=== PATIENT | male | born 1955 | race Caucasian/White ===

== ENCOUNTER 2019-06-20 19:41 | Emergency (ER) | payer OTHER ==
--- OUTSIDE RECORDS SUMMARY | 2019-06-20 19:43 | XMS REPORT ---
:[address] [facility] t Address [address] [place] [address] Dr. Srinivasan [address] [place] [address] Care Team Providers Name Role Phone Unavailable Unavailable Unavailable Problems This patient has no known problems. Allergies, Adverse Reactions, Alerts This patient has no known allergies or adverse reactions. Medications This patient has no known medications.
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
[2019-06-20] MEDS ORDERED: MORPHINE 2 MG/ML SYR ONE ×2 (19:56→21:06)
[2019-06-20] MEDS ORDERED: TETANUS & DIPHTHERIA TOX,ADULT 0.5 ML VIAL ONE (20:05)
[2019-06-20] MEDS ORDERED: LIDOCAINE 1% W/EPI 1:100,000 MDV 50 ML VIAL ONE (20:05)
[2019-06-20] MEDS ORDERED: NA CHLORIDE 0.9% 500 ML ONE (20:05)
[2019-06-20] MEDS ORDERED: CEFAZOLIN/SWI 1gm 1 GM/10 ML SYR ONE (20:06)
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
[2019-06-20 21:45] LABS: Absolute Lymphocytes (CBC) 1.8 K/uL (0.7-4.9); Basophils % 0.1 % (0-1.3); Hematocrit 40.1 % (39.6-49.0); Lymphocytes % 9.5 % (15.3-44.8); MPV 8.7 fL (7.6-11.3); RBC Red Blood Cell Count 4.43 M/uL (4.33-5.43)
[2019-06-20 21:55] LABS: Potassium 3.7 mmol/L (3.5-5.1)
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
[2019-06-20] MEDS ORDERED: MORPHINE 4 MG/ML SYR ONE (22:38)
[2019-06-20 22:51] VITALS: TEMP 97.7
[2019-06-20 22:54] VITALS: BP 122/76; O2SAT 98
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
== END 2019-06-20 22:40 | disposition short-term general hospital (02) ==
LOC: ER 19:41
PROC: 2W39X1Z Immobilization of Left Upper Extremity using Splint (ICD-10-PCS; principal; 2019-06-20)
DX: S42.402B Unspecified fracture of lower end of left humerus, initial encounter for open fracture (principal); S02.85XA Fracture of orbit, unspecified, initial encounter for closed fracture; S06.0X9A Concussion with loss of consciousness of unspecified duration, initial encounter; Z23 Encounter for immunization; Z79.82 Long term (current) use of aspirin; Z88.0 Allergy status to penicillin; I10 Essential (primary) hypertension; E11.9 Type 2 diabetes mellitus without complications; V27.4XXA Motorcycle driver injured in collision with fixed or stationary object in traffic accident, initial encounter
CPT/HCPCS: 85025; 80048; 86900; 86850; 86901; 70450; 72125; 70486; 76377; 71045; 73070; 73090; 73060; 90714; 29105; J2270 ×2; J0690; J7040

== ENCOUNTER 2022-04-07 10:59 | Day surgery (SDC) | payer BC, OTHER ==
[2022-03-24 14:07] LABS: Hematocrit 41.5 % (39.6-49.0); Lymphocytes % 29.1 % (15.3-44.8); MCV 88.8 fL (80-100); MPV 8.8 fL (7.6-11.3); RBC Red Blood Cell Count 4.68 M/uL (4.33-5.43)
[2022-03-24 14:18] LABS: Potassium 4.1 mmol/L (3.5-5.1)
--- NOTE | 2022-03-26 18:11 | EKG ---
Test Date: 2022-03-24 Test Time: 13:41:39 Concession Attendant: WALLACE MEASUREMENT RESULTS: Intervals: Rate: 71 KY: 172 QRSD: 92 QT: 424 QTc: 460 Maury: P: 70 KY: 172 QRS: 40 T: 58 INTERPRETIVE STATEMENTS: Normal sinus rhythm Normal ECG Compared to ECG 09/08/2007 15:14:18 No significant changes Electronically Signed On 03-26-22 18:10:44 MANAGER [employer]UST[employer]S by Luisito Jose
[2022-03-27 21:00] LABS: PSA FREE 0.01 ng/mL
[2022-04-07] MEDS ORDERED: Ringers Lactate 1,000 ML IV ONE (11:42)
[2022-04-07] MEDS: Gentamicin Inj 180 MG in NA CHLORIDE 0.9% 100 ML IV SCH ×2 (15:38→16:00)
[2022-04-07] MEDS ORDERED: LIDOCAINE 1% MPF 5 ML VIAL ONE (15:42)
[2022-04-07] MEDS ORDERED: propofoL 200 MG/20 ML VIAL IV ONE (15:42)
[2022-04-07] MEDS: CLINDAMYCIN 600MG/D5W 50 ML IV SCH ×2 (15:56→16:00)
[2022-04-07] MEDS ORDERED: FENTANYL CITR 100 MCG/2 ML ONE (16:11)
[2022-04-07] MEDS ORDERED: dexAMETHasone 10 MG/ML VIAL ONE (16:11)
[2022-04-07] MEDS ORDERED: ONDANSETRON 4 MG/2 ML VIAL ONE (16:11)
[2022-04-07] MEDS ORDERED: GLYCOPYRROLATE 0.2 MG/ML SYR ONE ×2 (16:23→16:27)
[2022-04-07] MEDS ORDERED: Phenylephrine HCl 10 MG/ML 1 ML VIAL ONE (16:24)
[2022-04-07 16:47] VITALS: O2SAT 100
[2022-04-07] MEDS ORDERED: PHENAZOPYRIDINE 100MG TAB PO ONE ×2 (16:54→18:20)
[2022-04-07 18:30] VITALS: BP 142/93; TEMP 96.8
--- NOTE | 2022-04-07 18:59 | OP ---
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 2.Status post robot assisted laparoscopic radical prostatectomy. 3.Intermediate risk prostate cancer. 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 2.Status post robot assisted laparoscopic radical prostatectomy. 3.Intermediate risk prostate cancer. Principal Procedure: Cystoscopy with bladder biopsy and fulguration. Indication For Procedure: Mr. Vargas is a 67-year-old gentleman, who underwent a radical prostatecto my several months ago with a successful outcome revealing intermediate risk prostate cancer with nega tive surgical margins. He has been continent and doing well, but had issues with persistent urinary tract infection. After being kept on treatment and then prophylactic antimicrobials for about a mana h, he stopped the antimicrobials and subsequent urine cultures have been negative; however, cystoscop ic evaluation to rule out intravesical foreign body, stone, or tumor as a source of the recurrent inf ection revealed the presence of a papillary urothelial neoplasm within the bladder neck just distal t o the right hemitrigone. As a result, he was counseled on the need for biopsies to evaluate for the potential for urothelial malignancy. Procedure In Detail: The patient was consented in the preoperative holding area before being transfe rred to the operative suite where general anesthesia was induced. He was given clindamycin and genta micin 2-3 mg/kg IV antimicrobial prophylaxis and pneumo boots were provided for DVT prophylaxis. He was placed in the lithotomy position, padded, and secured to the table appropriately, and his genital ia was prepped with Hibiclens and draped in standard fashion. The case was begun using a 22-Swedish c ystoscope to traverse the urethra and into the bladder with ease. There was no sign of bladder neck contracture and there was no urethral stricture. The patient was continent and his bladder was full of urine and there was no gross incontinence noted at the time of the procedure. The bladder was sammy veyed in its entirety, and other than approximately 3 mm papillary urothelial neoplasm on a stalk lilliam nating from the bladder neck distal to the right hemitrigone, no other papillary mucosal lesions, for eign bodies, or stones were noted. The bladder neck was specifically surveyed, and there was no fore ign body/suture intrusion and no evidence of any fistulous track. As a result, I utilized a cold cup biopsy forceps to grasp the papillary tumor and deliver it, sending it for pathologic analysis. A s econd biopsy of the base of the tumor was taken and sent in the same specimen cup. The base of the b iopsy site was then fulgurated using electrocautery in sterile water at 30 of coag. Once the base wa s completely coagulated, his bladder was decompressed and there was a careful search for any ongoing bleeding, and when none was noted, I decompressed his bladder completely before removing the cystosco pe. He was then taken out of the lithotomy position, awakened from general anesthesia, transferred t o a stretcher, and then transferred to the recovery room in good condition. Complications: None. Discharge Disposition: He should follow up in about 2 weeks to discuss the results of the biopsy and determine next steps if urothelial carcinoma is indeed identified. In that case, upper tract imagin g with delayed phase imaging may also be required. RENAE/SHEILA Voice ID: [id number] Report ID: [id number]
== END 2022-04-07 18:25 | disposition home or self-care (01) ==
LOC: OR 10:59
PROVIDERS: ATTEND Urology
PROC: 0TBB8ZX Excision of Bladder, Via Natural or Artificial Opening Endoscopic, Diagnostic (ICD-10-PCS; principal; 2022-04-07 12:30)
DX: D41.4 Neoplasm of uncertain behavior of bladder (principal); N30.80 Other cystitis without hematuria; C61 Malignant neoplasm of prostate
CPT/HCPCS: 52204; 93005; 85025; 87086; 80048; 36415; 88305; 84153; 84154; J2704; J2001; J2370; J1580; J3010; J1100; J7120; J2405; 87088